=== PATIENT | male | born 1990 | race Caucasian/White ===

== ENCOUNTER 2020-12-11 14:08 | Emergency (ER) | payer OTHER ==
[~2020-12-11] VITALS: Ht 177.8 cm; Wt 72.6 kg
--- NOTE | 2020-12-11 14:15 | NUR ---
BIB EMS and [employer] in custody. Per [employer] patient needs to be medically cleared for booking.
--- NOTE | 2020-12-11 14:30 | NUR ---
Per [employer] they will be placing the patient on a 5150 hold for danger to others.
[2020-12-11] MEDS ORDERED: HALOPERIDOL LACTATE 5 MG/1 ML VIAL IM ONE (14:45)
[2020-12-11] MEDS ORDERED: diphenhydrAMINE 50 MG/1 ML VIAL ONE (14:45)
[2020-12-11] MEDS ORDERED: LORAZEPAM 2 MG/1 ML VIAL IM ONE (14:45)
[2020-12-11] MEDS ORDERED: diphenhydrAMINE 50 MG/1 ML VIAL IM ONE (14:45)
--- NOTE | 2020-12-11 14:45 | NUR ---
Patient was medicated as ordered by Dr. Frias. Pt remains handcuffed (bilat wrist) to the gurney and [employer] remain at bedside.
[2020-12-11] MEDS ORDERED: LORAZEPAM 2 MG/1 ML VIAL ONE (14:46)
[2020-12-11] MEDS ORDERED: HALOPERIDOL LACTATE 5 MG/1 ML VIAL ONE (14:46)
--- NOTE | 2020-12-11 14:47 | NUR ---
PT EVALUATED BY DR MICHELLE.
--- NOTE | 2020-12-11 14:48 | NUR ---
PORT XRAY DONE AT BEDSIDE PER MD ORDER.
--- NOTE | 2020-12-11 15:00 | NUR ---
[employer] officer stated patient has an outstanding arrest warrant, will not be placed on a 5150 hold and will remain in custody. Dr. Frias spoke with [employer] regarding monitoring the patient in ER due to the medications the patient was given. Pt remains on the cardiac surgeon with cont pulse ox with no s/s of distress noted.
[2020-12-11 15:35] LABS: HEMATOCRIT 44.9 % (36.7-47.1); MEAN CORPUSCULAR VOLUME 92.6 fL (73.0-96.2); PLATELET COUNT (AUTO) 264 K/uL (152-348)
[2020-12-11 15:44] LABS: ETHANOL 254 MG/DL (0-0)
[2020-12-11 15:48] LABS: ALANINE AMINOTRANSFERASE 20 U/L (16-63); ALKALINE PHOSPHATASE 105 U/L (50-136); ASPARTATE AMINOTRANSFERASE 24 U/L (15-37); BILIRUBIN,DIRECT 0.1 mg/dL (0.0-0.2); BILIRUBIN,TOTAL 0.4 mg/dL (0.2-1.0); CARBON DIOXIDE 26 mmol/L (21-32); CHLORIDE 106 mmol/L (98-107); CREATININE 0.8 mg/dL (0.6-1.3); GLUCOSE 93 mg/dL (74-106); POTASSIUM 3.8 mmol/L (3.5-5.1); TOTAL PROTEIN, SERUM 7.9 g/dL (6.4-8.2); UREA NITROGEN, BLOOD 8 mg/dL (7-18)
[2020-12-11 15:55] LABS: ACETAMINOPHEN < 2.0 ug/mL (10-30)
--- NOTE | 2020-12-11 16:00 | NUR ---
Pt sleeping with NAD noted, [employer] remain at bedside.
--- NOTE | 2020-12-11 17:30 | NUR ---
Pt sleeping with NAD noted. [employer] remain at bedside.
--- NOTE | 2020-12-11 19:07 | NUR ---
Pt sleeping with NAD noted. [employer] remain at bedside.
--- NOTE | 2020-12-11 20:20 | NUR ---
Pt awake, resting in bed. AOx4. Offered change of clothes because pts. were soiled, helped pt. use urinal. [employer] at bedside. NAD.
--- NOTE | 2020-12-11 20:20 | NUR ---
Note deana in EDM - 12/11/20 at 2028 by [email or web address] Pt awake, resting in bed. AOx4. Offered change of clothes because pts. were soiled, helped pt. use urinal. [employer] at bedside. NAD.
--- NOTE | 2020-12-11 20:27 | NUR ---
Per Dr. Powell pt. is medically cleared. Pt aox4 and walks with steady gait. Patient will be discharged into [employer] custody.
--- NOTE | 2020-12-11 20:27 | NUR ---
Note deana in EDM - 12/11/20 at [email or web address] Powell pt. is medically cleared. Pt aox4 and walks with steady gait. Patient will be discharged into [employer] custody.
[2020-12-11 20:36] VITALS: BP 127/77
--- NOTE | 2020-12-11 20:36 | NUR ---
Patient discharged to [employer] custody in stable condition. Written and verbal after care instructions given. Patient verbalizes understanding of instructions. Stressed follow up or return to ER for worsening s/s. NAD. VSS. Pt walks with steady gait. AOx4.
== END 2020-12-11 20:38 ==
LOC: ER 14:08 → EDBD 14:08 → ER 20:38
DX: F10.129 Alcohol abuse with intoxication, unspecified (principal); Y90.8 Blood alcohol level of 240 mg/100 ml or more
CPT/HCPCS: 80048; 80076; 80299; 80307; 80320; 85025; 96372 ×2; 99284; J1200; J1630; J2060; 36415; A4663; G0480